=== PATIENT | male | born 1990 | race Caucasian/White ===

== ENCOUNTER 2023-07-27 12:57 | Emergency (ER) | payer BC, OTHER ==
[~2023-07-27] VITALS: Ht 177.8 cm; Wt 112.0 kg
[2023-07-27] MEDS ORDERED: NEOMY/BACITRA/POLYMYXIN B OINT UD PACKET TP ONE (13:36)
[2023-07-27] MEDS ORDERED: CEphaleXIN 500 MG CAPSULE ONE (13:36)
[2023-07-27] MEDS ORDERED: TDAP DIPH,PERTUSS,TET VAC/PF 0.5 ML DISP.SYRIN IM ONE (13:36)
[2023-07-27] MEDS ORDERED: LIDOCAINE HCL 1% 20 ML VIAL ONE (13:36)
[2023-07-27] MEDS: LIDOCAINE HCL 1% 20 ML VIAL TP ONE (13:40)
[2023-07-27] MEDS: CEphaleXIN 500 MG CAPSULE PO ONE (13:40)
[2023-07-27] MEDS: TDAP DIPH,PERTUSS,TET VAC/PF 0.5 ML DISP.SYRIN IM ONE (13:41)
[2023-07-27] MEDS: NEOMY/BACITRA/POLYMYXIN B OINT UD PACKET TP ONE (14:21)
[2023-07-27] MEDS ORDERED: CEPH500C2 PO (14:24)
[2023-07-27 15:37] VITALS: BP 119/61; O2SAT 99
== END 2023-07-27 15:38 ==
LOC: ER 12:57
DX: S91.311A Laceration without foreign body, right foot, initial encounter (principal); Z79.899 Other long term (current) drug therapy; W20.8XXA Other cause of strike by thrown, projected or falling object, initial encounter; Y93.89 Activity, other specified; Y92.89 Other specified places as the place of occurrence of the external cause; Y99.8 Other external cause status
CPT/HCPCS: 12001; 73620; 90471; 90715; 99283; J3490; A4606; A4663